=== PATIENT | male | born 1990 | race Caucasian/White ===

== ENCOUNTER 2016-08-15 13:47 | Emergency (ER) | payer MEDICAID ==
[2016-08-15 14:02] VITALS: BP 131/91
--- NOTE | 2016-08-15 14:46 | UC ---
Complaint Male HPI - HPI Summary HPI Summary: 5 days of nausea, vomiting, fatigue and subjective fever - History of Current Complaint Chief Complaint: UCChestPain Stated Complaint: FEVER Time Seen by Provider: 08/15/16 14:35 Hx Obtained From: Patient Onset/Duration: Sudden Onset, Lasting Days - 5, Still Present Timing: Constant Severity Initially: Moderate Severity Currently: Moderate Pain Intensity: 7 Location: None Character: Colicy Associated Signs And Symptoms: Positive: Fever, Appetite - decreased, Nausea, Vomiting(# Of Episodes =) - Allergies/Home Medications Allergies/Adverse Reactions: Allergies Allergy/AdvReac Type Severity Reaction Status Date / Time Shellfish Allergy Allergy Anaphylatic Verified 08/15/16 14:02 Shock Metformin AdvReac Severe PANIC Verified 08/15/16 14:02 ATTACKS PMH/Surg Hx/FS Hx/Imm Hx Previously Healthy: No Endocrine History: Diabetes Respiratory History: Asthma Other History Of: Negative For: Anticoagulant Therapy - Surgical History Surgical History: Yes Surgery Procedure, Year, and Place: nasal polyp removed 3-4 months ago - Family History Known Family History: Positive: Hypertension, Diabetes, Other - psoitive FMh URI - Social History Occupation: Employed Full-time Lives: With Family Alcohol Use: Occasionally Alcohol Amount: quit in March 2014 Substance Use Type: None Smoking Status (MU): Former Smoker When Did the Patient Quit Smoking/Using Tobacco: Mar 2013 Review of Systems Constitutional: Chills, Fatigue Skin: Negative Eyes: Negative ENT: Negative Respiratory: Negative Cardiovascular: Negative Gastrointestinal: Abdominal Pain - LUQ and epigastric, Vomiting, Nausea Genitourinary: Negative Motor: Negative Neurovascular: Negative Musculoskeletal: Negative Neurological: Negative Psychological: Negative All Other Systems Reviewed And Are Negative: Yes Physical Exam Triage Information Reviewed: Yes Appearance: Ill-Appearing, Pain Distress, Obese Vital Signs: Initial Vital Signs Temp 98.4 F 08/15/16 13:58 Pulse 96 08/15/16 13:58 Resp 20 08/15/16 13:58 BP 131/91 08/15/16 13:58 Pulse Ox 99 08/15/16 13:58 Vital Signs Reviewed: Yes Eye Exam: Normal Eyes: Positive: Conjunctiva Clear ENT Exam: Normal ENT: Positive: Normal ENT inspection, Hearing grossly normal. Negative: Nasal congestion, Nasal drainage, Trismus, Muffled/hoarse voice Dental Exam: Normal Neck exam: Normal Neck: Positive: Supple, Nontender, No Lymphadenopathy Respiratory Exam: Normal Respiratory: Positive: Chest non-tender, Lungs clear, Normal breath sounds, No respiratory distress, No accessory muscle use Cardiovascular Exam: Normal Cardiovascular: Positive: RRR, No Murmur, Pulses Normal, Brisk Capillary Refill Abdominal Exam: Normal Abdomen Description: Positive: Soft, Other: - mid epigastric and luq pain. Negative: Nontender, CVA Tenderness (R), CVA Tenderness (L) Bowel Sounds: Positive: Present Musculoskeletal Exam: Normal Musculoskeletal: Positive: Strength Intact, ROM Intact, No Edema Neurological Exam: Normal Neurological: Positive: Alert, Muscle Tone Normal Psychological Exam: Normal Skin Exam: Normal Diagnostics - Laboratory Diagnostic Studies Completed/Ordered: FSBS 330, no ketones in urine Complaint Male Course/Dx - Course Course Of Treatment: npo transfer to [facility] for further evaluation of abd pain - Differential Dx/Diagnosis Differential Diagnosis/HQI/PQRI: Urinary Tract Infection, Other - pancreatitis, acute nausea and vomiting, gastritis, hyperglycemia Provider Diagnoses: HYperglycemia, acute nausea and vomiting Discharge - Discharge Plan Condition: Stable Disposition: AGAINST MEDICAL ADVICE Referrals: Timothy Garcia MD [Primary Care Provider] -
== END 2016-08-15 15:37 | disposition left against medical advice (07) ==
LOC: UCEAST 13:47
DX: E11.65 Type 2 diabetes mellitus with hyperglycemia (principal)
CPT/HCPCS: 81003; 93005; 99212; G0463

== ENCOUNTER 2016-08-15 15:52 | Emergency (ER) | payer MEDICAID ==
[2016-08-15] MEDS ORDERED: NS 0.9% 1000 ML* 2,000 ML IV ONE (17:46)
[2016-08-15] MEDS ORDERED: Morphine INJ* 4 MG/ML 1 ML SYRINGE IV ONE (17:47)
[2016-08-15] MEDS ORDERED: Ondansetron INJ* 2 MG/ML VIAL IV ONE (17:47)
[2016-08-15 18:31] LABS: Hematocrit 45 % (42-52); Hemoglobin 15.5 g/dl (14.0-18.0); Mean Corpuscular HGB Conc 34 g/dl (31-36); Mean Corpuscular Hemoglobin 31 pg (27-31); Mean Corpuscular Volume 91 fL (80-94); Mean Platelet Volume 10 um3 (7.4-10.4); Red Cell Distribution Width 12 % (10.5-15); White Blood Count 2.2 10^3/ul (3.5-10.8)
[2016-08-15 18:33] LABS: Comments Flag Yes
[2016-08-15 18:34] LABS: Add Diff/Slide Review? Slide Review Added
[2016-08-15 18:35] LABS: Albumin 4.1 g/dL (3.2-5.2); BUN/Creatinine Ratio 13.2 (8-20); C Reactive Protein 46.72 mg/L (< 5.00); EGFR African American 128.5 (>60); EGFR Non-African American 99.9 (>60); Globulin 3.5 g/dL (2-4); Magnesium 1.8 mg/dL (1.9-2.7); Potassium 3.4 mmol/L (3.5-5.0); Total Bilirubin 1.5 mg/dL (0.2-1.0); Total Protein 7.6 g/dL (6.4-8.9)
[2016-08-15 19:39] LABS: Urine Bilirubin Negative (Negative); Urine Glucose 3+(>=500 mg/dL) (Negative); Urine Nitrite Negative (Negative)
[2016-08-15] MEDS ORDERED: Ondansetron ODT TAB* 4 MG PO ONE (20:28)
[2016-08-15] MEDS ORDERED: HYDROcodone/ACETAMIN 5-325 MG* 1 TAB PO ONE (20:28)
--- NOTE | 2016-08-15 20:36 | ED ---
Shikha Mckeon Auryana, scribed for Lakshmi Chambers MD on 08/15/16 at 1652 . Abdominal Pain/Male - HPI Summary HPI Summary: 26 year old male presents with fever, and LLQ pain starting 4 days ago. His pain has now progressed to diaphoresis at night, mid sternal chest pain, nausea , and flank pain. He denies any sore throat, cough, or any diarrhea. reports that their cats often bring home ticks but denies any tick bites. He was seen at [facility] and referred to the ED for further evaluation - believes for evaluation of pancreatitis. PMHx is significant for DM. FHx is significant for DM. SHx is not significant for tobacco, alcohol, or drugs. Dr. Garcia is his PCP. - History of Current Complaint Chief Complaint: EDAbdPain Stated Complaint: ABD PAIN/SENT FROM [facility] Time Seen by Provider: 08/15/16 16:48 Hx Obtained From: Patient Onset/Duration: Gradual Onset, Lasting Days - 5, Still Present Timing: Constant Severity Initially: Mild Severity Currently: Moderate Pain Intensity: 6 Pain Scale Used: 0-10 Numeric Location: Discrete At: LLQ, Flank Associated Signs And Symptoms: Positive: Diaphoresis, Fever, Chest Pain - mid sternal, Nausea - dry heaving. Negative: Cough, Diarrhea - Allergies/Home Medications Allergies/Adverse Reactions: Allergies Allergy/AdvReac Type Severity Reaction Status Date / Time Shellfish Allergy Allergy Anaphylatic Verified 08/15/16 14:02 Shock Metformin AdvReac Severe PANIC Verified 08/15/16 14:02 ATTACKS PMH/Surg Hx/FS Hx/Imm Hx Endocrine/Hematology History: Reports: Hx Diabetes Denies: Hx Anticoagulant Therapy, Hx Thyroid Disease Cardiovascular History: Denies: Hx Hypertension, Hx Pacemaker/ICD Respiratory History: Reports: Hx Asthma - albuterol as needed Denies: Hx Chronic Obstructive Pulmonary Disease (COPD) GI History: Reports: Other GI Disorders - pt. states elevated liver enzymes 6 months ago History: Denies: Hx Renal Disease Musculoskeletal History: Reports: Hx Orthopedic Injury - fx. to right foot and right knee Neurological History: Denies: Hx Dementia, Hx Seizures Psychiatric History: Denies: Hx Substance Abuse - Surgical History Surgery Procedure, Year, and Place: nasal polyp removed 3-4 months ago Hx Anesthesia Reactions: No Infectious Disease History: No Infectious Disease History: Denies: Hx Clostridium Difficile, Hx Hepatitis, Hx Human Immunodeficiency Virus (HIV), Hx of Known/Suspected MRSA, Hx Shingles, Hx Tuberculosis, Hx Known/ Suspected VRE, Hx Known/Suspected VRSA, History Other Infectious Disease, Traveled Outside the [place] in Last 30 Days - Family History Known Family History: Positive: Hypertension, Diabetes, Other - (+) FHx of U.R.I. Negative: Cardiac Disease - Social History Lives: With Family Alcohol Use: Occasionally Alcohol Amount: quit in March 2014 Substance Use Type: Reports: None Smoking Status (MU): Former Smoker Review of Systems Positive: Fever, Skin Diaphoresis Eyes: Negative ENT: Negative Negative: Sore Throat Positive: Chest Pain - mid sternal chest pain Respiratory: Negative Negative: Cough Positive: Abdominal Pain - LLQ , Nausea. Negative: Vomiting, Diarrhea Positive: flank pain Musculoskeletal: Negative Skin: Negative Neurological: Negative Psychological: Normal All Other Systems Reviewed And Are Negative: Yes Physical Exam - Summary Physical Exam Summary: General: Well appearing, no pain distress Skin: Warm, Skin Color Reflects Adequate Perfusion, Dry Eyes: EOMI, MARCE ENT: Pharynx normal, TMs normal Neck: Supple, nontender Respiratory: CTA, breath sounds present, no rhonchi, no wheezes, no rales Cardiovascular: RRR, no murmur, no rub, no gallop Abdomen: Soft, nontender, Non-distended, no guarding, no rebound Bowel: Present Musculoskeletal: CAMPBELL, No edema Neuro: Sensory/motor intact, A&Ox3, CN intact 2-12 Psych: Affect/mood appropriate Triage Information Reviewed: Yes Vital Signs On Initial Exam: Initial Vitals Temp Pulse Resp BP Pulse Ox 98.3 F 91 17 133/89 98 08/15/16 15:54 08/15/16 15:54 08/15/16 15:54 08/15/16 15:54 08/15/16 15:54 Vital Signs Reviewed: Yes - [place] Coma Scale Coma Scale Total: 15 Diagnostics - Vital Signs Vital Signs Temp Pulse Resp BP Pulse Ox 08/15/16 16:45 98.0 F 89 16 136/87 94 08/15/16 15:54 98.3 F 91 17 133/89 98 - Laboratory Lab Results: Lab Results 08/15/16 08/15/16 08/15/16 Range/Units 18:10 18:10 18:10 WBC 2.2 L (3.5-10.8) 10^3/ul RBC 5.00 (4.0-5.4) 10^6/ul Hgb 15.5 (14.0-18.0) g/dl Hct 45 (42-52) % MCV 91 (80-94) fL MCH 31 (27-31) pg MCHC 34 (31-36) g/dl RDW 12 (10.5-15) % Plt Count 99 L (150-450) 10^3/ul MPV 10 (7.4-10.4) um3 Neut % (Auto) 37.5 L (38-83) % Lymph % (Auto) 47.3 H (25-47) % [place] % (Auto) 13.6 H (1-9) % Eos % (Auto) 0.1 (0-6) % Baso % (Auto) 1.5 (0-2) % Absolute Neuts (auto) 0.8 L* (1.5-7.7) 10^3/ul Absolute Lymphs (auto) 1.0 (1.0-4.8) 10^3/ul Absolute Monos (auto) 0.3 (0-0.8) 10^3/ul Absolute Eos (auto) 0 (0-0.6) 10^3/ul Absolute Basos (auto) 0 (0-0.2) 10^3/ul Absolute Nucleated RBC 0 10^3/ul Nucleated RBC % 0.1 Hem Pathologist Commnt Pending Sodium 132 L (133-145) mmol/L Potassium 3.4 L (3.5-5.0) mmol/L Chloride 98 L (101-111) mmol/L Carbon Dioxide 27 (22-32) mmol/L Anion Gap 7 (2-11) mmol/L BUN 12 (6-24) mg/dL Creatinine 0.91 (0.67-1.17) mg/dL Est GFR ( Amer) 128.5 (>60) Est GFR (Non-Af Amer) 99.9 (>60) BUN/Creatinine Ratio 13.2 (8-20) Glucose 277 H (70-100) mg/dL Lactic Acid 1.2 (0.5-2.0) mmol/L Calcium 9.0 (8.6-10.3) mg/dL Magnesium 1.8 L (1.9-2.7) mg/dL Total Bilirubin 1.50 H (0.2-1.0) mg/dL AST 60 H (13-39) U/L ALT 101 H (7-52) U/L Alkaline Phosphatase 75 (34-104) U/L C-Reactive Protein 46.72 H (< 5.00) mg/L Total Protein 7.6 (6.4-8.9) g/dL Albumin 4.1 (3.2-5.2) g/dL Globulin 3.5 (2-4) g/dL Albumin/Globulin Ratio 1.2 (1-3) Lipase 12 (11.0-82.0) U/L Urine Color Urine Appearance Urine pH (5-9) Ur Specific [place] (1.010-1.030) Urine Protein (Negative) Urine Ketones (Negative) Urine Blood (Negative) Urine Nitrate (Negative) Urine Bilirubin (Negative) Urine Urobilinogen (Negative) Ur Leukocyte Esterase (Negative) Urine Glucose (Negative) Urine Ascorbic Acid (Negative) 08/15/16 Range/Units 19:27 WBC (3.5-10.8) 10^3/ul RBC (4.0-5.4) 10^6/ul Hgb (14.0-18.0) g/dl Hct (42-52) % MCV (80-94) fL MCH (27-31) pg MCHC (31-36) g/dl RDW (10.5-15) % Plt Count (150-450) 10^3/ul MPV (7.4-10.4) um3 Neut % (Auto) (38-83) % Lymph % (Auto) (25-47) % [place] % (Auto) (1-9) % Eos % (Auto) (0-6) % Baso % (Auto) (0-2) % Absolute Neuts (auto) (1.5-7.7) 10^3/ul Absolute Lymphs (auto) (1.0-4.8) 10^3/ul Absolute Monos (auto) (0-0.8) 10^3/ul Absolute Eos (auto) (0-0.6) 10^3/ul Absolute Basos (auto) (0-0.2) 10^3/ul Absolute Nucleated RBC 10^3/ul Nucleated RBC % Hem Pathologist Commnt Sodium (133-145) mmol/L Potassium (3.5-5.0) mmol/L Chloride (101-111) mmol/L Carbon Dioxide (22-32) mmol/L Anion Gap (2-11) mmol/L BUN (6-24) mg/dL Creatinine (0.67-1.17) mg/dL Est GFR ( Amer) (>60) Est GFR (Non-Af Amer) (>60) BUN/Creatinine Ratio (8-20) Glucose (70-100) mg/dL Lactic Acid (0.5-2.0) mmol/L Calcium (8.6-10.3) mg/dL Magnesium (1.9-2.7) mg/dL Total Bilirubin (0.2-1.0) mg/dL AST (13-39) U/L ALT (7-52) U/L Alkaline Phosphatase (34-104) U/L C-Reactive Protein (< 5.00) mg/L Total Protein (6.4-8.9) g/dL Albumin (3.2-5.2) g/dL Globulin (2-4) g/dL Albumin/Globulin Ratio (1-3) Lipase (11.0-82.0) U/L Urine Color Yellow Urine Appearance Clear Urine pH 6.0 (5-9) Ur Specific [place] 1.038 H (1.010-1.030) Urine Protein Negative (Negative) Urine Ketones 1+ H (Negative) Urine Blood Negative (Negative) Urine Nitrate Negative (Negative) Urine Bilirubin Negative (Negative) Urine Urobilinogen Positive H (Negative) Ur Leukocyte Esterase Negative (Negative) Urine Glucose 3+(>=500 mg/dl) H (Negative) Urine Ascorbic Acid * H (Negative) Result Diagrams: 08/15/16 18:10 08/15/16 18:10 Lab Statement: Any lab studies that have been ordered have been reviewed, and results considered in the medical decision making process. - EKG 19:11 EKG Interpretation: NSR @ 83, non-specific T wave changes Abdominal Pain Fem Course/Dx - Course Course Of Treatment: 26 yo male with gagging for a few days and fever that has stopped, mild abd pain with neutropenia no fever here exam is very benign liver enzymes sl elevated but they have been in the past (may be related to fatty liver). plan is well appearing here and nausea and general body aches gone with nausea meds and fluids. Pt will be doing close f/u with pmd, cultures have been drawn, and lactic acid is neg, hr is normal. Pt knowns to return if symptoms worsen and with low wbc to avoid contact with individuals who are sick , hep and mono also pending. - Diagnoses Provider Diagnoses: Neutropenia Discharge - Discharge Plan Condition: Stable Disposition: HOME Prescriptions: Ondansetron ODT TAB* [Zofran 4 MG Odt TAB*] 4 mg PO Q8H PRN #14 tab.odt PRN Reason: Nausea Patient Education Materials: Viral Syndrome (ED) Referrals: Timothy Garcia MD [Primary Care Provider] - 2 Days The documentation as recorded by the Shikha vaughan Auryana accurately reflects the service I personally performed and the decisions made by me, Lakshmi Chambers MD.
[2016-08-15 20:44] VITALS: BP 122/71
[2016-08-15 20:46] LABS: Manual Entry Verification SAM0057; Mono Internal Control QC Line Present
== END 2016-08-15 20:52 | disposition home or self-care (01) ==
LOC: ED 15:52
DX: D70.9 Neutropenia, unspecified (principal); R10.32 Left lower quadrant pain; R50.9 Fever, unspecified; R07.9 Chest pain, unspecified
CPT/HCPCS: 36415; 80053; 80074; 81003; 83605; 83690; 83735; 85025; 85060; 86140; 86308; 93005; 96374; 96375; 99283; A9270-GY; J2270; J2405

== ENCOUNTER 2016-08-18 10:47 | Emergency (ER) | payer MEDICAID ==
[2016-08-18 12:17] VITALS: BP 127/76
== END 2016-08-18 12:47 | disposition left against medical advice (07) ==
LOC: UCEAST 10:47
DX: R79.89 Other specified abnormal findings of blood chemistry (principal); Z53.21 Procedure and treatment not carried out due to patient leaving prior to being seen by health care provider

== ENCOUNTER 2016-08-22 17:24 | Emergency (ER) | payer MEDICAID ==
[2016-08-22 17:30] VITALS: BP 135/87
[2016-08-22] MEDS ORDERED: Naproxen TAB* 250 MG PO ONE (18:00)
--- NOTE | 2016-08-22 18:22 | UC ---
Skin Complaint HPI - HPI Summary HPI Summary: Bright red skin on arms and legs starting this morning. looks like a sun burn, but pt denies any significant sun exposure in the last 2 days. Yesterday worked indoors all day, time spent outside was as the sun was setting. No new medications. Was seen here for nausea and abdominal pain & diarrhea 08/15/16, sent to ED and found to be neutropenic with a WBC of 2.2 and ANC of 0.8. Has not had a redraw for this, though all his abdominal symptoms are better. - History of Current Complaint Chief Complaint: UCSkin Time Seen by Provider: 08/22/16 17:59 Stated Complaint: RASH Hx Obtained From: Patient Onset/Duration: Gradual Onset, Lasting Hours Timing: Constant Onset Severity: Mild Current Severity: Mild Location: Diffuse Character: Redness Aggravating: Nothing Alleviating: Nothing Associated Signs & Symptoms: Positive: Rash - Allergy/Home Medications Allergies/Adverse Reactions: Allergies Allergy/AdvReac Type Severity Reaction Status Date / Time Shellfish Allergy Allergy Anaphylatic Verified 08/15/16 14:02 Shock Metformin AdvReac Severe PANIC Verified 08/15/16 14:02 ATTACKS Review of Systems Constitutional: Negative Skin: Rash Eyes: Negative ENT: Negative Respiratory: Negative Cardiovascular: Negative Gastrointestinal: Negative Genitourinary: Negative Motor: Negative Neurovascular: Negative Musculoskeletal: Negative Neurological: Negative Psychological: Negative All Other Systems Reviewed And Are Negative: Yes PMH/Surg Hx/FS Hx/Imm Hx Endocrine History: Diabetes Cardiovascular History: Hypertension Other History Of: Negative For: Anticoagulant Therapy - Surgical History Surgical History: Yes Surgery Procedure, Year, and Place: nasal polyp removed 3-4 months ago - Family History Known Family History: Positive: Hypertension, Diabetes, Other - (+) FHx of U.R.I. Negative: Cardiac Disease - Social History Alcohol Use: Occasionally Alcohol Amount: quit in March 2014 Substance Use Type: None Smoking Status (MU): Former Smoker When Did the Patient Quit Smoking/Using Tobacco: Mar 2013 Physical Exam Triage Information Reviewed: Yes Appearance: Well-Appearing, No Pain Distress, Obese Vital Signs: Initial Vital Signs Temp 98.1 F 08/22/16 17:27 Pulse 112 08/22/16 17:27 Resp 18 08/22/16 17:27 BP 135/87 08/22/16 17:27 Pulse Ox 100 08/22/16 17:27 Vital Signs Reviewed: Yes Eye Exam: Normal Eyes: Positive: Conjunctiva Clear ENT: Positive: Pharynx normal, Other: - L TM rupture, pt states this is a polyp. Negative: TMs normal Dental Exam: Normal Neck exam: Normal Neck: Positive: Supple, Nontender, No Lymphadenopathy Respiratory Exam: Normal Respiratory: Positive: Chest non-tender, Lungs clear, Normal breath sounds, No respiratory distress, No accessory muscle use Cardiovascular: Positive: No Murmur, Tachycardia Abdominal Exam: Normal Abdomen Description: Positive: Nontender, No Organomegaly, Soft. Negative: CVA Tenderness (R), CVA Tenderness (L) Bowel Sounds: Positive: Present Musculoskeletal Exam: Normal Neurological Exam: Normal Neurological: Positive: Alert Psychological Exam: Normal Skin Exam: Other - uniform bright red skin on dorsum of forearms and lower legs up to knees; slightly warm, no bullae or petechiae Course/Dx - Differential Diagnoses - Skin Complaint Differential Diagnoses: Contact Dermatitis, Drug Rash, Endocrine Abnormality, [place] - Diagnoses Provider Diagnoses: dermatitis. follow up to neutropenia Discharge - Discharge Plan Condition: Stable Disposition: HOME Patient Education Materials: Dermatitis (ED), Neutropenia (ED) Referrals: Timothy Garcia MD [Primary Care Provider] - 2 Days Additional Instructions: If you need to, see someone else in Dr. Garcia's office so you can follow up quickly. Something is not right, and you need further testing. We have sent follow-up labs tonight to recheck your white blood cell levels. Please go to the emergency department if you develop fever, severe pain or and significant worsening.
[2016-08-23 10:42] LABS: Hematocrit 41 % (42-52); Hemoglobin 14.4 g/dl (14.0-18.0); Mean Corpuscular HGB Conc 35 g/dl (31-36); Mean Corpuscular Hemoglobin 31 pg (27-31); Mean Corpuscular Volume 90 fL (80-94); Mean Platelet Volume 11 um3 (7.4-10.4); Red Cell Distribution Width 12 % (10.5-15)
[2016-08-23 10:56] LABS: Albumin 4.3 g/dL (3.2-5.2); BUN/Creatinine Ratio 15.3 (8-20); C Reactive Protein 9.75 mg/L (< 5.00); Calcium 9.5 mg/dL (8.6-10.3); EGFR African American 139.1 (>60); EGFR Non-African American 108.1 (>60); Globulin 2.9 g/dL (2-4); Potassium 3.7 mmol/L (3.5-5.0); Total Protein 7.2 g/dL (6.4-8.9)
--- NOTE | 2016-08-23 16:34 | UC ---
Progress - Progress Note Progress Note: Suman call pt to find out how his skin rash is doing, to make sure he is planning to follow up with his primary care provider, and to tell him the concerns about his white blood cells are resolved for now. Both the WBC count and the neutrophil count are back to normal. The CRP is still high, but not as high as it was in the hospital. His blood sugar does not appear to be well- managed, and he may need further treatment -- this he should discuss with his primary care provider.
== END 2016-08-22 18:56 | disposition home or self-care (01) ==
LOC: UCEAST 17:24
DX: L30.9 Dermatitis, unspecified (principal); D70.9 Neutropenia, unspecified; E11.9 Type 2 diabetes mellitus without complications; I10 Essential (primary) hypertension; Z87.891 Personal history of nicotine dependence
CPT/HCPCS: 36415; 80053; 85025; 86140; 86703; 99211; A9270-GY; G0463

== ENCOUNTER 2016-10-26 20:04 | Emergency (ER) | payer MEDICAID ==
[2016-10-26 20:16] VITALS: BP 137/81
[2016-10-26] MEDS ORDERED: Amoxicillin/Clavulanate TAB* 875 MG PO ONE (20:46)
[2016-10-26] MEDS ORDERED: HYDROcodone/ACETAMIN 5-325 MG* 1 TAB PO ONE (20:46)
--- NOTE | 2016-10-26 20:57 | UC ---
Dental HPI - HPI Summary HPI Summary: This is a 26 yo male with NIDDM who presents with c/o dental pain for the last 2d. He has a known broken molar on the R side. He has an appointment for the of this month. He denies fever, n/v. It's painful to eat. He recently had ear surgery on the opposite ear with Dr Johnson. - History of Current Complaint Chief Complaint: UCDentalProblem Stated Complaint: DENTAL PAIN - Allergies/Home Medications Allergies/Adverse Reactions: Allergies Allergy/AdvReac Type Severity Reaction Status Date / Time Shellfish Allergy Allergy Anaphylatic Verified 10/26/16 20:16 Shock Metformin AdvReac Severe PANIC Verified 10/26/16 20:16 ATTACKS Home Medications: Home Medications Ibuprofen TAB* [Advil TAB*] 800 mg PO PRN 10/26/16 [History] PMH/Surg Hx/FS Hx/Imm Hx Endocrine History: Diabetes Other History Of: Negative For: Anticoagulant Therapy - Surgical History Surgical History: Yes Surgery Procedure, Year, and Place: nasal polyp removed, EAR POLY REMOVED - Family History Known Family History: Positive: Hypertension, Diabetes, Other - (+) FHx of U.R.I. Negative: Cardiac Disease - Social History Alcohol Use: Occasionally Alcohol Amount: quit in March 2014 Substance Use Type: None Smoking Status (MU): Former Smoker When Did the Patient Quit Smoking/Using Tobacco: Mar 2013 Review of Systems Constitutional: Negative Skin: Negative Eyes: Negative ENT: Dental Pain, Ear Ache Respiratory: Negative Cardiovascular: Negative Gastrointestinal: Negative Genitourinary: Negative Motor: Negative Neurovascular: Negative Musculoskeletal: Negative Neurological: Negative Psychological: Negative Is Patient Immunocompromised?: No All Other Systems Reviewed And Are Negative: Yes Physical Exam Triage Information Reviewed: Yes Appearance: Pain Distress - mild Vital Signs: Initial Vital Signs Temp 97.5 F 10/26/16 20:12 Pulse 85 10/26/16 20:12 Resp 18 10/26/16 20:12 BP 137/81 10/26/16 20:12 Pulse Ox 98 10/26/16 20:12 Vital Signs Reviewed: Yes ENT: Positive: Pharynx normal, TM red - L TM has mild erythema. Negative: Tonsillar swelling Dental: Positive: Dental Fracture @ - R mandibular posterior molar, Abscess @ - gingival erythema and TTP around R posterior mandibular molar Neck: Positive: Supple, Nontender, No Lymphadenopathy Respiratory: Positive: Lungs clear. Negative: Crackles, Rhonchi, Wheezing Cardiovascular: Positive: RRR, No Murmur Abdomen Description: Positive: Nontender, Soft Musculoskeletal Exam: Normal Musculoskeletal: Positive: Strength Intact Neurological Exam: Normal Neurological: Positive: Alert Psychological Exam: Normal Skin Exam: Normal Dental Complaint Course/Dx - Course Course Of Treatment: This is a 26 yo male with NIDDM who presents with c/o dental pain x 2d. Recommend treatment with Augmentin and provided pain medication. Encouraged him to keep his upcoming appointment with the dentist - Differential Dx/Diagnosis Differential Diagnosis/Dx: Dental Abscess, Fractured Tooth, Pharyngitis, Tonsillitis Provider Diagnoses: 1. Dental abscess Discharge - Discharge Plan Condition: Stable Disposition: HOME Prescriptions: Amoxicillin/Clavulanate TAB* [Augmentin TAB 875*] 875 mg PO BID #20 tab Hydrocodone-Acetaminophen [Lorcet 5-325 mg] 1 tab PO Q4H #20 tab MDD 6 tabs Patient Education Materials: Dental Abscess (ED) Referrals: Timothy Garcia MD [Primary Care Provider] - Additional Instructions: Instructions: 1. Please take antibiotics as directed 2. Take pain medication as needed 3. Keep your dental appointment as currently scheduled
== END 2016-10-26 20:59 | disposition home or self-care (01) ==
LOC: UCEAST 20:04
DX: K04.7 Periapical abscess without sinus (principal); Z87.891 Personal history of nicotine dependence
CPT/HCPCS: 99212; A9270-GY; G0463

== ENCOUNTER 2018-04-17 17:28 | Emergency (ER) | payer BC, MEDICAID ==
[2018-04-17 18:02] VITALS: BP 156/96
--- NOTE | 2018-04-17 18:50 | UC ---
General HPI - HPI Summary HPI Summary: 28yo WM p/w left upper 3rd molar pain and sore throat x 2 days, B/L ear pains x1.5 weeks. Has h/o B/L ear polyps, s/o surgery in left ear and while awaiting surgery on right ear polyp removal, lost insurance but now has insurance and is awaiting ENT appt. - History of Current Complaint Chief Complaint: UCDentalProblem Stated Complaint: TOOTH ACHE, EAR ACHE, AND SORE THROAT Time Seen by Provider: 04/17/18 18:32 Hx Obtained From: Patient, Family/Front Office Associate Onset/Duration: Sudden Onset, Lasting Days, Lasting Weeks Onset Severity: Severe Current Severity: Severe Pain Intensity: 8 - Allergy/Home Medications Allergies/Adverse Reactions: Allergies Allergy/AdvReac Type Severity Reaction Status Date / Time metformin Allergy See Comment Verified 04/17/18 17:56 shellfish derived Allergy Anaphylatic Verified 04/17/18 17:56 Shock PMH/Surg Hx/FS Hx/Imm Hx Other History Of: Negative For: Anticoagulant Therapy - Surgical History Surgical History: Yes Surgery Procedure, Year, and Place: nasal polyp removed, EAR POLY REMOVED - Family History Known Family History: Positive: Hypertension, Diabetes, Other - (+) FHx of U.R.I. Negative: Cardiac Disease - Social History Alcohol Use: Occasionally Alcohol Amount: quit in March 2014 Substance Use Type: None Smoking Status (MU): Former Smoker When Did the Patient Quit Smoking/Using Tobacco: Mar 2013 Review of Systems All Other Systems Reviewed And Are Negative: Yes Constitutional: Positive: Fever, Chills ENT: Positive: Dental Pain, Sore Throat, Ear Ache Respiratory: Positive: Negative Cardiovascular: Positive: Negative Gastrointestinal: Positive: Negative Genitourinary: Positive: Negative Motor: Positive: Negative Neurovascular: Positive: Negative Musculoskeletal: Positive: Negative Neurological: Positive: Negative Is Patient Immunocompromised?: No Physical Exam - Summary Physical Exam Summary: Vital Signs Reviewed: Yes Skin: Positive: Warm Head/Face: Positive: Normal Head/Face Inspection Eyes: Positive: Normal ENT: Positive: whitish moist tissue growth at the far end of ear canal obstructing the view of TM B/L, Cavity and broken off tooth #14, faint exudates in B/L tonsils with erythema and swelling Neck: Positive: Supple Respiratory/Lung Sounds: Positive: Clear to Auscultation Cardiovascular: Positive: Normal, RRR, S1, S2 Abdomen Description: Positive: Nontender Musculoskeletal: Positive: Normal Neurological: Positive: Normal Psychiatric: Positive: Normal, Affect/Mood Appropriate Triage Information Reviewed: Yes Appearance: Pain Distress Vital Signs: Initial Vital Signs Temp 37.7 C 04/17/18 17:55 Pulse 101 04/17/18 17:55 Resp 18 04/17/18 17:55 BP 156/96 04/17/18 17:55 Pulse Ox 100 04/17/18 17:55 Vital Signs Reviewed: Yes Course/Dx - Course Course Of Treatment: Rapid strep positive, dental abscess and ear infeciton- Augmenting 875 BID x 10 days - Diagnoses Provider Diagnosis: Dental abscess, Acute ear pain, Pharyngitis Discharge - Sign-Out/Discharge Documenting (check all that apply): Patient Departure All imaging exams completed and their final reports reviewed: Yes - Discharge Plan Condition: Stable Disposition: HOME Prescriptions: Amoxicillin/Clavulanate TAB* [Augmentin TAB 875*] 875 mg PO BID 7 Days #14 tab Patient Education Materials: Strep Throat (ED), Dental Abscess (ED), Ear Infection (ED) Referrals: Timothy Garcia MD [Primary Care Provider] - - Billing Disposition and Condition Condition: STABLE Disposition: Home
== END 2018-04-17 19:30 | disposition home or self-care (01) ==
LOC: UCEAST 17:28
DX: J02.9 Acute pharyngitis, unspecified (principal); K04.7 Periapical abscess without sinus; H92.09 Otalgia, unspecified ear; Z87.891 Personal history of nicotine dependence; Z88.8 Allergy status to other drugs, medicaments and biological substances; Z91.013 Allergy to seafood
CPT/HCPCS: 87651; 99212; G0463

== ENCOUNTER 2019-01-02 20:52 | Emergency (ER) | payer BC ==
[2019-01-02 21:58] LABS: ABS Basophils 0.1 10^3/ul (0-0.2); ABS Eosinophils 0.1 10^3/ul (0-0.6); ABS Lymphocytes 3.1 10^3/ul (1.0-4.8); ABS Monocytes 0.5 10^3/ul (0-0.8); Eosinophil % 0.9 %; Hematocrit 47 % (42-52); Hemoglobin 16.8 g/dL (14.0-18.0); Lymphocyte % 28.9 %; Mean Corpuscular HGB Conc 35 g/dL (31-36); Mean Corpuscular Hemoglobin 32 pg (27-31); Mean Corpuscular Volume 91 fL (80-94); Mean Platelet Volume 8.8 fL (7.4-10.4); Nucleated Red Blood Cells % 0.1; Platelet Count 186 10^3/uL (150-450); Red Blood Count 5.21 10^6 /uL (4.18-5.48); Red Cell Distribution Width 13 % (10-15); White Blood Count 10.9 10^3/uL (3.5-10.8)
[2019-01-02 22:09] LABS: INR 0.97 (0.82-1.09)
[2019-01-02 22:22] LABS: Albumin 4.5 g/dL (3.2-5.2); Albumin/Globulin Ratio 1.5 (1-3); BUN/Creatinine Ratio 22.1 (8-20); Calcium 9.6 mg/dL (8.6-10.3); EGFR African American 144.5 (>60); EGFR Non-African American 119.4 (>60); Globulin 3.1 g/dL (2-4); Potassium 3.7 mmol/L (3.5-5.0); Total Bilirubin 0.7 mg/dL (0.2-1.0); Total Protein 7.6 g/dL (6.4-8.9)
[2019-01-02 22:23] LABS: Troponin I 0.01 ng/mL (<0.03)
--- NOTE | 2019-01-03 00:39 | ED ---
HPI Chest Pain - HPI Summary HPI Summary: This pt is a 28 Y/O M presenting to [facility] accompanied by his with a CC of upper CP that extends across his collar bone and is described as pressure that started at 1330 01/02/19 and is rated a 6/10 in severity. He states that the pain worsened while he was driving with his daughters when his left arm became numb and he became SOB and light-headed. He states that he is currently supposed to take glipizide for his DM but states that since hes been losing weight his BS has not been as high as it has been in the past. He denies any N/ V and diaphoresis. He states no aggravating or alleviating factors. He has a SHx of smoking tobacco regularly and drinking alcohol. He states that his father of a TX at around 60 but the age is unknown due to lack of communication with his father. - History of Current Complaint Chief Complaint: EDChestPainROMI Time Seen by Provider: 01/02/19 23:43 Hx Obtained From: Patient Onset/Duration: Started Hours Ago, Still Present Time of Onset: 13:30 Timing: Constant Initial Severity: Moderate Current Severity: Moderate Pain Intensity: 6 Pain Scale Used: 0-10 Numeric Chest Pain Location: Discrete at:, Upper Sternal - extends across his collar bones Chest Pain Radiates: No Character: Pressure/Squeezing Aggravating Factor(s): Nothing Alleviating Factor(s): Nothing Associated Signs and Symptoms: Positive: Chest Pain, Numbness - left arm, Tingling - left arm, Shortness of Breath, Lightheadedness. Negative: Headaches , Fever, Chills, Diaphoresis, Nausea, Vomiting - Allergy/Home Medications Allergies/Adverse Reactions: Allergies Allergy/AdvReac Type Severity Reaction Status Date / Time metformin Allergy See Comment Verified 01/02/19 21:03 shellfish derived Allergy Anaphylatic Verified 01/02/19 21:03 Shock Home Medications: Home Medications NK [No Home Medications Reported] 01/02/19 [History Confirmed 01/02/19] PMH/Surg Hx/FS Hx/Imm Hx Previously Healthy: Yes Endocrine/Hematology History: Reports: Hx Diabetes Denies: Hx Anticoagulant Therapy, Hx Thyroid Disease Cardiovascular History: Denies: Hx Hypertension, Hx Pacemaker/ICD Respiratory History: Reports: Hx Asthma Denies: Hx Chronic Obstructive Pulmonary Disease (COPD) GI History: Reports: Other GI Disorders - pt. states elevated liver enzymes 6 months ago History: Denies: Hx Renal Disease Musculoskeletal History: Reports: Hx Orthopedic Injury - fx. to right foot and right knee Neurological History: Denies: Hx Dementia, Hx Seizures Psychiatric History: Denies: Hx Substance Abuse - Surgical History Surgery Procedure, Year, and Place: nasal polyp removed, Left EAR POLY REMOVED Hx Anesthesia Reactions: No - Immunization History Immunizations Up to Date: Yes Infectious Disease History: No Infectious Disease History: Denies: Hx Clostridium Difficile, Hx Hepatitis, Hx Human Immunodeficiency Virus (HIV), Hx of Known/Suspected MRSA, Hx Shingles, Hx Tuberculosis, Hx Known/ Suspected VRE, Hx Known/Suspected VRSA, History Other Infectious Disease, Traveled Outside the [place] in Last 30 Days - Family History Known Family History: Positive: Hypertension, Diabetes, Other - (+) FHx of U.R.I. Negative: Cardiac Disease - Social History Occupation: Employed Full-time Lives: With Family Alcohol Use: Rare Hx Substance Use: Yes Substance Use Type: Reports: None Hx Tobacco Use: Yes Smoking Status (MU): Light Every Day Tobacco Smoker Type: Cigarettes Amount Used/How Often: 1/2 PPD Household Exposure: Yes Review of Systems - ROS Summary Review of Systems Summary: Home Medications Medication Instructions Recorded Confirmed Type NK [No Home Medications Reported] 01/02/19 01/02/19 History Negative: Fever, Chills, Skin Diaphoresis Positive: Chest Pain. Negative: Palpitations Positive: Shortness Of Breath Negative: Vomiting, Nausea Neurological: Other - light-headed Positive: Numbness - and tingling in his L arm . Negative: Headache All Other Systems Reviewed And Are Negative: Yes Physical Exam - Summary Physical Exam Summary: General: Well-developed, obese male. No acute distress. HEENT: Normocephalic, Atraumatic. Eyes: Conjuctiva normal, PERRL. Ears: TMs within normal limits. Nares: (-) discharge, (-) erythema. Oropharynx: Clear, mucous membranes moist, (-) exudates. Neck: Soft, FROM, (-) lymphadenopathy, (-) thyromegaly, (-) JVD. Cardiovascular: Normal sinus rhythm, (-) murmur. Lungs: Clear to auscultation bilaterally (-) wheezes, (-) rales, (-) rhonchi. Abdomen: Soft, non-tender, non-distended, (-) organomegaly, normal bowel sounds. Back: (-) CVA tenderness Extremities: No edema. Skin: Warm, dry, (-) rash. Neuro: Alert and oriented x3, no focal deficits. Psychiatric: Mood normal, affect normal. Triage Information Reviewed: Yes Vital Signs On Initial Exam: Initial Vitals Temp Pulse Resp BP Pulse Ox 98.4 F 84 16 139/75 100 01/02/19 20:53 01/02/19 20:53 01/02/19 20:53 01/02/19 20:53 01/02/19 20:53 Vital Signs Reviewed: Yes Procedures - Sedation Patient Received Moderate/Deep Sedation with Procedure: No Diagnostics - Vital Signs Vital Signs Temp Pulse Resp BP Pulse Ox 01/02/19 23:22 77 14 135/64 98 01/02/19 23:00 76 19 92 01/02/19 22:22 77 24 119/71 96 01/02/19 22:11 83 20 142/73 96 01/02/19 22:00 85 19 95 01/02/19 21:53 81 13 98 01/02/19 21:52 82 12 148/103 99 01/02/19 20:53 98.4 F 84 16 139/75 100 - Laboratory Lab Results: Lab Results 01/02/19 01/02/19 01/02/19 Range/Units 21:51 21:51 21:51 WBC 10.9 H (3.5-10.8) 10^3/uL RBC 5.21 (4.18-5.48) 10^6 /uL Hgb 16.8 (14.0-18.0) g/dL Hct 47 (42-52) % MCV 91 (80-94) fL MCH 32 H (27-31) pg MCHC 35 (31-36) g/dL RDW 13 (10-15) % Plt Count 186 (150-450) 10^3/uL MPV 8.8 (7.4-10.4) fL Neut % (Auto) 64.7 % Lymph % (Auto) 28.9 % Blaine % (Auto) 4.6 % Eos % (Auto) 0.9 % Baso % (Auto) 0.9 % Absolute Neuts (auto) 7.0 (1.5-7.7) 10^3/ul Absolute Lymphs (auto) 3.1 (1.0-4.8) 10^3/ul Absolute Monos (auto) 0.5 (0-0.8) 10^3/ul Absolute Eos (auto) 0.1 (0-0.6) 10^3/ul Absolute Basos (auto) 0.1 (0-0.2) 10^3/ul Absolute Nucleated RBC 0.0 10^3/ul Nucleated RBC % 0.1 INR (Anticoag Therapy) 0.97 (0.82-1.09) Sodium 136 (135-145) mmol/L Potassium 3.7 (3.5-5.0) mmol/L Chloride 104 (101-111) mmol/L Carbon Dioxide 24 (22-32) mmol/L Anion Gap 8 (2-11) mmol/L BUN 17 (6-24) mg/dL Creatinine 0.77 (0.67-1.17) mg/dL Est GFR ( Amer) 144.5 (>60) Est GFR (Non-Af Amer) 119.4 (>60) BUN/Creatinine Ratio 22.1 H (8-20) Glucose 113 H (70-100) mg/dL Calcium 9.6 (8.6-10.3) mg/dL Total Bilirubin 0.70 (0.2-1.0) mg/dL AST 36 (13-39) U/L ALT 85 H (7-52) U/L Alkaline Phosphatase 92 (34-104) U/L Troponin I 0.01 (<0.03) ng/mL Total Protein 7.6 (6.4-8.9) g/dL Albumin 4.5 (3.2-5.2) g/dL Globulin 3.1 (2-4) g/dL Albumin/Globulin Ratio 1.5 (1-3) 01/02/19 Range/Units 23:55 WBC (3.5-10.8) 10^3/uL RBC (4.18-5.48) 10^6 /uL Hgb (14.0-18.0) g/dL Hct (42-52) % MCV (80-94) fL MCH (27-31) pg MCHC (31-36) g/dL RDW (10-15) % Plt Count (150-450) 10^3/uL MPV (7.4-10.4) fL Neut % (Auto) % Lymph % (Auto) % Blaine % (Auto) % Eos % (Auto) % Baso % (Auto) % Absolute Neuts (auto) (1.5-7.7) 10^3/ul Absolute Lymphs (auto) (1.0-4.8) 10^3/ul Absolute Monos (auto) (0-0.8) 10^3/ul Absolute Eos (auto) (0-0.6) 10^3/ul Absolute Basos (auto) (0-0.2) 10^3/ul Absolute Nucleated RBC 10^3/ul Nucleated RBC % INR (Anticoag Therapy) (0.82-1.09) Sodium (135-145) mmol/L Potassium (3.5-5.0) mmol/L Chloride (101-111) mmol/L Carbon Dioxide (22-32) mmol/L Anion Gap (2-11) mmol/L BUN (6-24) mg/dL Creatinine (0.67-1.17) mg/dL Est GFR ( Amer) (>60) Est GFR (Non-Af Amer) (>60) BUN/Creatinine Ratio (8-20) Glucose (70-100) mg/dL Calcium (8.6-10.3) mg/dL Total Bilirubin (0.2-1.0) mg/dL AST (13-39) U/L ALT (7-52) U/L Alkaline Phosphatase (34-104) U/L Troponin I 0.00 (<0.03) ng/mL Total Protein (6.4-8.9) g/dL Albumin (3.2-5.2) g/dL Globulin (2-4) g/dL Albumin/Globulin Ratio (1-3) Result Diagrams: 01/02/19 21:51 01/02/19 21:51 Lab Statement: Any lab studies that have been ordered have been reviewed, and results considered in the medical decision making process. - Radiology CXR Radiology Interpretation Completed By: ED Physician Summary of Radiographic Findings: No stridor or pleural effusion. Pending offical review. - EKG 2054 Cardiac Rate: NL - 84 BPM EKG Rhythm: Sinus Rhythm ST Segment: Normal Ectopy: None EKG Comparison: No Significant Change Summary of EKG Findings: EKG at 2054 reveals normal sinus rhythm with rate of 84 BPM, no acute changes, no ischemic changes. This EKG was reviewed and interpreted by Dr. Wade at 205701/02/19. Re-Evaluation - Re-Evaluation First Eval Re-Evaluation Time: 01:36 Change: Improved Comment: I have discussed results with the patient and his chest pain is resolved. Discussed symptoms that warrant immediate return to ED Chest Pain Course/Dx - Course Course Of Treatment: 28-year-old male with chest pain today. Patient had pain at rest. It comes and goes on its own. No cardiac history. He states his dad did have an TX in his 60s. However he was also a smoker and alcoholic. Patient doesn't know much more about his father. Workup essentially negative as above. Discussed at length with patient. Advised him to follow up with PCP and discuss whether or not a stress test will be needed. Also continue working on cardiac risk factors. Recommend tobacco cessation. Follow-up sooner for any worsening symptoms - Diagnoses Provider Diagnoses: Tobacco use, Chest pain Discharge ED - Sign-Out/Discharge Documenting (check all that apply): Patient Departure - discharge - Discharge Plan Condition: Stable Disposition: HOME Patient Education Materials: Chest Pain (ED) Referrals: Timothy Garcia MD [Primary Care Provider] - 2 Days Additional Instructions: PLEASE FOLLOW UP WITH YOU PRIMARY CARE PROVIDER IN 1-3 DAYS AND RETURN TO THE EMERGENCY DEPARTMENT FOR ANY NEW OR WORSENING SYMPTOMS. - Billing Disposition and Condition Condition: STABLE Disposition: Home - Attestation Statements Document Initiated by Venkata: Yes Documenting Scribe: Ilir Varela Provider For Whom Venkata is Documenting (Include Credential): Monica Wade MD Scribe Attestation: I, Ilir Varela, scribed for Monica Wade MD on 01/03/19 at 0310. Scribe Documentation Reviewed: Yes Provider Attestation: The documentation as recorded by the Ilir vaughan accurately reflects the service I personally performed and the decisions made by me, Monica Wade MD Status of Scribe Document: Viewed
[2019-01-03 01:47] VITALS: BP 119/75
== END 2019-01-03 01:36 | disposition home or self-care (01) ==
LOC: ED 20:52
DX: R07.9 Chest pain, unspecified (principal); F17.210 Nicotine dependence, cigarettes, uncomplicated; E11.9 Type 2 diabetes mellitus without complications; Z88.8 Allergy status to other drugs, medicaments and biological substances
CPT/HCPCS: 36415; 71045; 80053; 84484; 85025; 85610; 93005; 99283

== ENCOUNTER 2020-06-10 06:48 | Observation (INO) ==
[~2020-06-10 06:48] MED LIST: Buffered Lidocaine 1% SYRIN 1 ml INTRADERM ONE
[2020-06-10] MEDS ORDERED: Famotidine IV 10 MG/ML 2 ml VIAL (20 mg) ONE ×2 (07:13→11:59)
[2020-06-10] MEDS ORDERED: Heparin 5000 UNITS/ML 1 mL VIAL ONE ×2 (07:14→11:58)
[2020-06-10] MEDS ORDERED: ceFAZolin 1 GM ADVAN 1 GM ADDV.VIAL IVPB ONE ×2 (07:14→14:21)
[2020-06-10] MEDS ORDERED: ceFAZolin 2 GM PREMIX 0 GM/0 ML BAG ONE (07:14)
[2020-06-10] MEDS ORDERED: Lidocaine 2.5%/Prilocain 2.5% 5 GM TUBE ONE (07:14)
[2020-06-10] MEDS: Lactated Ringers 1000 ml BAG 1,000 ML IV SCH ×2 (07:31→10:30)
[2020-06-10] MEDS: Famotidine IV 10 MG/ML 2 ml VIAL (20 mg) IV ONE ×2 (07:31→12:12)
[2020-06-10] MEDS ORDERED: Rocuronium 50 mg VIAL 10 mg/ml 5 ml VIAL (50 mg) ONE ×2 (08:22→15:14)
[2020-06-10] MEDS ORDERED: Propofol 10 MG/ML 20 ML BTL ONE (11:39)
[2020-06-10] MEDS ORDERED: Lidocaine 2% PF 5 ML VIAL ONE (11:39)
[2020-06-10] MEDS ORDERED: fentaNYL 250 mcg/5 ml 50 MCG/ML 5 ml VIAL (250 MCG) ONE (11:44)
[2020-06-10] MEDS ORDERED: Midazolam 2 mg/2 ml VIAL 1 mg/ml 2 ml VIAL (2 mg) ONE (13:11)
[2020-06-10] MEDS ORDERED: Lidocaine 1% w EPI 1:100,000 MDV 20 ML VIAL ONE (14:15)
[2020-06-10] MEDS ORDERED: ISOSULFAN BLUE 1% 5 ML VIAL 10 MG/ML SUBCUT ONE (14:15)
[2020-06-10] MEDS ORDERED: Bupivacaine 0.25% SDV 30 ML ONE (14:15)
[2020-06-10] MEDS ORDERED: ceFAZolin 2 GM PREMIX 2 GM/50 ML BAG ONE (14:21)
[2020-06-10] MEDS ORDERED: Phenylephrine 40 mcg/mL 10mL (400mcg) SYRINGE ONE (14:56)
[2020-06-10] MEDS ORDERED: Ondansetron 4 mg VIAL 2 MG/ML 2 ml VIAL ONE (14:57)
[2020-06-10] MEDS ORDERED: Dexamethasone IV 4 MG/ML VIAL 1 ml VIAL ONE (14:57)
[2020-06-10] MEDS ORDERED: Mineral Oil Sterile, TOPICAL 25 ML BTL ONE (15:10)
[2020-06-10] MEDS ORDERED: fentaNYL 100 mcg/2 ml 50 MCG/ML VIAL IV PRN (17:29)
[2020-06-10] MEDS ORDERED: Ondansetron 4 mg VIAL 2 MG/ML 2 ml VIAL IV PRN ×2 (17:29→17:40)
[2020-06-10] MEDS ORDERED: Naloxone 0.4 mg VIAL 0.4 mg/ml 1 ml VIAL IV PRN (17:29)
[2020-06-10] MEDS ORDERED: oxyCODONE/Acetamin 5/325 mg TAB PO PRN (17:29)
[2020-06-10] MEDS ORDERED: fentaNYL 100 mcg/2 ml 50 MCG/ML VIAL ONE (17:31)
[2020-06-10] MEDS ORDERED: oxyCODONE/Acetamin 5/325 mg TAB ONE (17:31)
[2020-06-10] MEDS ORDERED: Dextrose 50% Syringe 50 ml 25 GM/50 ML SYRINGE IV PUSH PRN (17:43)
[2020-06-10] MEDS ORDERED: Nicotine GUM 4MG FRUIT FLAVOR PO PRN (17:48)
[2020-06-10] MEDS ORDERED: HYDROcodone/ACETAMIN 5/325 mg TAB PO PRN (18:38)
[2020-06-11 05:51] LABS: ABS Basophils 0.1 10^3/ul (0-0.2); ABS Eosinophils 0.1 10^3/ul (0-0.6); ABS Lymphocytes 3.1 10^3/ul (1.0-4.8); ABS Monocytes 0.4 10^3/ul (0-0.8); ABS Neutrophils 6.5 10^3/ul (1.5-7.7); Eosinophil % 0.9 %; Hematocrit 46 % (42-52); Hemoglobin 16.2 g/dL (14.0-18.0); Lymphocyte % 30.7 %; Mean Corpuscular HGB Conc 35 g/dL (31-36); Mean Corpuscular Hemoglobin 32 pg (27-31); Mean Corpuscular Volume 90 fL (80-94); Mean Platelet Volume 9.6 fL (7.4-10.4); Nucleated Red Blood Cells % 0.2; Platelet Count 134 10^3/uL (150-450); Red Blood Count 5.06 10^6 /uL (4.18-5.48); Red Cell Distribution Width 13 % (10-15); White Blood Count 10.2 10^3/uL (3.5-10.8)
[2020-06-11 06:16] LABS: Calcium 8.9 mg/dL (8.6-10.3); EGFR African American 140.5 (>60); EGFR Non-African American 116.1 (>60); Potassium 3.8 mmol/L (3.5-5.0)
[2020-06-11 07:57] VITALS: BP 115/67
== END 2020-06-11 10:43 | disposition home or self-care (01) ==
LOC: SSU 06:48 → OR 06:48
PROVIDERS: ADMIT Plastic Surgery; ATTEND Plastic Surgery